=== PATIENT | male | born 1980 | race Caucasian/White ===

== ENCOUNTER 2017-05-17 19:04 | Emergency (ER) | payer OTHER ==
--- NOTE | 2017-05-17 19:24 | Emergency Department Record ---
History of Present Illness - General Chief Complaint: Abdominal Pain Stated Complaint: ABDOMEN PAIN JUST ABOVE NAVAL Time Seen by Provider: 05/17/17 19:20 Source: Patient Mode of Arrival: Ambulatory Limitations: No limitations - History of Present Illness Initial Comments: 36 yo male presents to ED for evaluation of pain to the mason-umbilical region. Patient reports that he was moving some large objects, felt sudden-onset of pain to the area which initially improved but has worsened several hours later. Patient denies fever, chills, or recent illness, and the patient denies health problems at her baseline. Patient is concerned about possible umbilical hernia. MD Complaint: Abdominal pain Onset/Timin -: Hour(s) Location: Periumbilical Radiation: None Migration to: No migration Quality: Sharp, Stabbing Consistency: Constant Improves With: Nothing Worsens With: Other Associated Symptoms: Denies other symptoms - Related Data Home Medications Medication Instructions Recorded Confirmed Last Taken No Home Med [NO HOME MEDS] 05/17/17 05/17/17 Unknown Allergies Allergy/AdvReac Type Severity Reaction Status Date / Time prednisone AdvReac Mild DIARRHEA Verified 05/17/17 19:10 Travel Screening - Travel/Exposure Within Last 30 Days Have you traveled within the last 30 days?: No - Travel Symptoms Symptom Screening: None Review of Systems Constitutional: Denies: Chills, Fever, Malaise, Night sweats Eyes: Denies: Eye discharge, Eye pain ENT: Denies: Congestion, Ear pain, Epistaxis Respiratory: Denies: Cough, Dyspnea Cardiovascular: Denies: Chest pain, Dyspnea on exertion Endocrine: Denies: Fatigue, Heat or cold intolerance Gastrointestinal: Reports: Abdominal pain. Denies: Constipation, Nausea, Vomiting Genitourinary: Denies: Incontinence, Retention Musculoskeletal: Denies: Arthralgia, Back pain, Gout, Joint swelling Skin: Denies: Bruising, Change in color Neurological: Denies: Abnormal gait, Confusion, Headache, Seizure Psychiatric: Denies: Anxiety Hematological/Lymphatic: Denies: Anemia, Blood Clots Past Medical History - SOCIAL HISTORY Smoking Status: Current every day smoker - RESPIRATORY Hx Respiratory Disorders: No - CARDIOVASCULAR Hx Cardio Disorders: No - NEURO Hx Neuro Disorders: No - GI Hx GI Disorders: No - Hx Genitourinary Disorders: No - ENDOCRINE Hx Endocrine Disorders: No - MUSCULOSKELETAL Hx Musculoskeletal Disorders: Yes - PSYCH Hx Psych Problems: No - HEMATOLOGY/ONCOLOGY Hx Hematology/Oncology Disorders: No Family Medical History Any Significant Family History?: Yes Hx Heart Disease: Grandparents Hx Stroke: Grandparents Physical Exam - General General Appearance: Alert, Oriented x3, Cooperative, Mild distress Limitations: No limitations - Head Head exam: Atraumatic, Normocephalic, Normal inspection Head exam detail: negative: Abrasion, Contusion, Redding's sign, General tenderness, Hematoma, Laceration - Eye Eye exam: Normal appearance. negative: Conjunctival injection, Periorbital swelling, Periorbital tenderness, Scleral icterus - ENT Ear exam: negative: Auricular hematoma, Auricular trauma Nasal Exam: negative: Active bleeding, Discharge, Dried blood, Foreign body Mouth exam: negative: Drooling, Laceration, Muffled voice, Tongue elevation - Neck Neck exam: Normal inspection. negative: Meningismus, Tenderness - Respiratory Respiratory exam: Normal lung sounds bilaterally. negative: Rales, Respiratory distress, Rhonchi, Stridor - Cardiovascular Cardiovascular Exam: Regular rate, Normal rhythm, Normal heart sounds - GI/Abdominal GI/Abdominal exam: Soft, Tenderness (Very pinpoint TTP 1.0 cm above the umbilicus, no evidence for incarcerated hernia on examination, no other TTP on examination.). negative: Rebound, Rigid - Rectal Rectal exam: Deferred - exam: Deferred - Extremities Extremities exam: Normal inspection. negative: Calf tenderness, Pedal edema, Tenderness - Back Back exam: Denies: CVA tenderness (R), CVA tenderness (L) - Neurological Neurological exam: Alert, Normal gait, Oriented X3 - Psychiatric Psychiatric exam: Normal affect, Normal mood - Skin Skin exam: Normal color. negative: Abrasion Type of lesion: negative: abrasion Course Vital Signs 05/17/17 19:12 Temperature 98.1 F Pulse Rate [ 98 H Pulse Ox Probe] Respiratory 20 Rate Blood Pressure 134/89 [Left Arm] Pulse Ox 98 - Reevaluation(s) Reevaluation #1: 05/17/17 20:55 CT Abdomen and Pelvis: No obstructive uropathy is present, small calcification in ricardo expected region of the distal right ureter/pelvic inlet, no hydronephrosis. Patient was updated on all results, denies flank pain or urinary symptoms. Offered to perform UA, patient declined. Recommended return to ED for any development of urinary symptoms or blood in the urine. Patient is otherwise well appearing and stable for discharge at this time. Disposition Disposition: Discharge Clinical Impression: Abdominal pain Qualifiers: Abdominal location: periumbilical Qualified Code(s): R10.33 - Periumbilical pain Disposition: Home, Self-Care Condition: (2) Stable Instructions: Abdominal Pain (ED) Additional Instructions: Return to ED if your symptoms worsen or if you have any concerns. Motrin as needed for your pain symptoms. Follow-up with your family doctor in 1-3 days. Forms: Patient Portal Access Time of Disposition: 20:59 Quality - Quality Measures Quality Measures: N/A - Blood Pressure Screening Does Patient Have Any of the Following: No Blood Pressure Classification: Normal BP Reading Systolic Measurement: 119 Diastolic Measurement: 79 Screening for High Blood Pressure: < Normal BP, F/U Not Required > [G8783]
== END 2017-05-17 21:21 | disposition home or self-care (01) ==
LOC: ER 19:04
DX: R10.33 Periumbilical pain (principal)
CPT/HCPCS: 74176; 99283

== ENCOUNTER 2018-02-18 09:20 | Emergency (ER) | payer OTHER ==
--- NOTE | 2018-02-18 09:38 | Emergency Department Record ---
History of Present Illness - General Chief complaint: Extremity Problem Stated complaint: Jaxon LIM Time Seen by Provider: 02/18/18 09:27 Source: Patient Mode of Arrival: Ambulatory Limitations: No limitations - History of Present Illness Initial comments: The patient is here due to L hand pain for a week. He denies any injury or trauma but he did break his 5th MC bone 2 years ago. Complaint: Extremity pain Onset/Timin -: Week(s) Location: Left, Hand Radiation: Proximal Severity scale (1-10): 8 Quality: Aching Consistency: Constant - Related Data Allergies Allergy/AdvReac Type Severity Reaction Status Date / Time prednisone AdvReac Mild DIARRHEA Verified 02/18/18 09:26 Travel Screening - Travel/Exposure Within Last 30 Days Have you traveled within the last 30 days?: No - Travel/Exposure Within Last Year Have you traveled outside the [place] in the last year?: No - Additonal Travel Details Have you been exposed to anyone with a communicable illness?: No - Travel Symptoms Symptom Screening: None Review of Systems Constitutional: Denies: Chills, Fever Past Medical History - SOCIAL HISTORY Smoking Status: Current every day smoker Alcohol Use: Occasional Drug Use: None - RESPIRATORY Hx Respiratory Disorders: No - CARDIOVASCULAR Hx Cardio Disorders: No - NEURO Hx Neuro Disorders: No - GI Hx GI Disorders: No - Hx Genitourinary Disorders: No - ENDOCRINE Hx Endocrine Disorders: No - MUSCULOSKELETAL Hx Musculoskeletal Disorders: Yes - PSYCH Hx Psych Problems: No - HEMATOLOGY/ONCOLOGY Hx Hematology/Oncology Disorders: No Family Medical History Any Significant Family History?: Yes Hx Heart Disease: Grandparents Hx Stroke: Grandparents Physical Exam - General General Appearance: Alert, Oriented x3, Cooperative, No acute distress - Head Head exam: Atraumatic, Normocephalic, Normal inspection - Eye Eye exam: Normal appearance, PERRL - Extremities Extremities exam: Normal inspection (There is no swelling, bruising, or redness. ), Full ROM, Normal capillary refill, Tenderness (There is tenderness over the 5th MC bone. ). negative: Joint swelling Course Vital Signs 02/18/18 09:22 Temperature 98.3 F Pulse Rate 75 Respiratory 20 Rate Blood Pressure 118/95 Pulse Ox 96 - Reevaluation(s) Reevaluation #1: I did discuss the issues with the patient. He is to take an NSAID for pain and to try to not lift heavy objects at work. He is to see his PCP if not better in 1 week. 02/18/18 09:54 Medical Decision Making - Data Complexity MDM Data: X-Ray Ordered and/or Reviewed - Radiology Data Radiology results: Report reviewed (L hand: No acute changes. Old 5th MC fx.) Disposition Disposition: Discharge Clinical Impression: Hand pain, left Disposition: Home, Self-Care Condition: (2) Stable Instructions: Hand Sprain (ED) Additional Instructions: Please take an OTC pain medicine as needed and wear the splint if possible. Please see your family doctor if not better in 1 week. Forms: Patient Portal Access Time of Disposition: 09:56 Quality - Quality Measures Quality Measures: N/A - Blood Pressure Screening View Details: Yes Does Patient Have Any of the Following: No Blood Pressure Classification: Hypertensive Reading Systolic Measurement: 118 Diastolic Measurement: 95 Screening for High Blood Pressure: < First Hypertensive BP, F/U Documented > [ G8950] First Hypertensive Follow-up Interventions: Referral to alternative/primary care provider.
--- NOTE | 2018-02-19 07:21 | RADIOLOGY REPORT ---
EXAM: LEFT HAND HISTORY: PAIN. TECHNIQUE: Three views of the left hand were obtained. Comparison: Prior left hand from 08/05/16. FINDINGS: Negative for an acute fracture or dislocation. Old healed fifth metacarpal fracture. The soft tissues are unremarkable. The joint spaces are preserved. IMPRESSION: OLD FRACTURE OF THE FIFTH METACARPAL. NO ACUTE ABNORMALITY. JOB NUMBER: [id number] MTDD
== END 2018-02-18 10:12 | disposition home or self-care (01) ==
LOC: ER 09:20
DX: M79.642 Pain in left hand (principal); F17.210 Nicotine dependence, cigarettes, uncomplicated
CPT/HCPCS: 99283